=== PATIENT | female | born 1970 | race Caucasian/White ===

== ENCOUNTER 2016-06-23 18:58 | Emergency (ER) | payer MEDICAID ==
[~2016-06-23] VITALS: Ht 152.4 cm; Wt 75.5 kg
[2016-06-23 19:23] VITALS: Ht 152.4 cm; Wt 75.5 kg
--- NOTE | 2016-06-24 02:03 | ERA ---
ER Documentation Chief Complaint Date/Time DATE: 06/24/16 TIME: 02:02 Chief Complaint referred by pmd for low hgb 6.9 HPI The patient is a 45-year-old female, presenting to the ER because of abnormal hemoglobin 6.9, drawn yesterday. She was referred to the ER by her physician. She complained of generalized fatigue for months, denies hematemesis or hematochezia. She denies fever, chills, neck pain, chest pain, abdominal pain, vomiting, dysuria, diarrhea, constipation She does not smoke nor drink. She does not have excessive vaginal bleeding during her menstrual. Past medical history: None Past surgical history: 3 ROS All systems reviewed and are negative except as per history of present illness. Medications Home Meds Active Scripts Ferrous Sulfate* (Ferrous Sulfate*) 325 Mg Tabec, 325 MG PO TID for 30 Days, TAB Prov:SERGIO KURTZ MD 06/24/16 Allergies Allergies: Coded Allergies: No Known Drug Allergies (Verified Allergy, Unknown, 06/23/16) Physical Exam Vitals Vital Signs Date Time Temp Pulse Resp B/P Pulse Ox O2 Delivery O2 Flow Rate FiO2 06/23/16 19:23 99.2 100 20 135/83 99 Physical Exam Const: No acute distress. Head: Atraumatic. Eyes: Normal Conjunctiva. ENT: Normal External Ears, Nose and Mouth. Neck: Full range of motion. No meningismus. Resp: Clear to auscultation bilaterally. Cardio: Regular rate and rhythm, no murmurs. Abd: Soft, non distended, normal bowel sounds, non tender. Skin: No petechiae or rashes. Back: No midline or flank tenderness. Ext: No cyanosis, or edema. Neur: Awake and alert. No focal deficit Psych: Normal Mood and Affect. Result Diagram: 06/24/16 0205 06/24/16 0205 Results 24 hrs Laboratory Tests Test 06/24/16 02:05 White Blood Count 7.110^3/ul Red Blood Count 4.4410^6/ul Hemoglobin 7.4g/dl Hematocrit 28.1% Mean Corpuscular Volume 63.3fl Mean Corpuscular Hemoglobin 16.7pg Mean Corpuscular Hemoglobin Concent 26.3g/dl Red Cell Distribution Width 18.4% Platelet Count 36022^3/UL Mean Platelet Volume 8.7fl Neutrophils % 56.9% Lymphocytes % 34.8% Monocytes % 6.8% Eosinophils % 0.6% Basophils % 0.6% Nucleated Red Blood Cells % 0.0/100WBC Neutrophils # 4.010^3/ul Lymphocytes # 2.510^3/ul Monocytes # 0.510^3/ul Eosinophils # 0.010^3/ul Basophils # 0.010^3/ul Nucleated Red Blood Cells # 0.010^3/ul Prothrombin Time 12.8Sec Prothrombin Time Ratio 1.0 INR International Normalized Ratio 0.96 Activated Partial Thromboplast Time 25.7Sec Sodium Level 141mmol/L Potassium Level 3.5mmol/L Chloride Level 101mmol/L Carbon Dioxide Level 26mmol/L Anion Gap 18 Blood Urea Nitrogen 10mg/dl Creatinine 0.53mg/dl Glucose Level 105mg/dl Calcium Level 9.3mg/dl Total Bilirubin 0.3mg/dl Direct Bilirubin 0.00mg/dl Indirect Bilirubin 0.3mg/dl Aspartate Amino Transf (AST/SGOT) 26IU/L Alanine Aminotransferase (ALT/SGPT) 29IU/L Alkaline Phosphatase 83IU/L Total Protein 8.2g/dl Albumin 4.6g/dl Globulin 3.60g/dl Albumin/Globulin Ratio 1.27 Serum HCG, Qualitative NEGATIVE Procedures/MDM MEDICAL MAKING DECISION: The patient is a 45-year-old female, presenting with anemia, most likely due to iron deficient anemia. She is stable for outpatient follow-up. The differential diagnoses considered include but are not limited to gastritis, peptic ulcer disease, esophageal varices, Samantha-Valle tear, carcinoma, polyp, hemorrhoid, fissure, diverticulosis, angiodysplasia. Departure Diagnosis: Primary Impression: Anemia Condition: Good Comments She was discharged with ferrous sulfate I discussed the findings with the patient. I advised the patient to follow-up with the primary physician in about 1-2 days, sooner if needed and return if any concern. The patient's blood pressure was elevated (>120/80) but appears stable without evidence of hypertension emergency or urgency. The patient was counseled about the risks of hypertension and urged to pursue outpatient monitoring and therapy within a week with their primary care physician. SERGIO KURTZ MD Jun 24, 2016 02:03
[2016-06-24 02:32] LABS: ADD SCAN DIFF NO
[2016-06-24 02:34] LABS: ABNORMAL IP MESSAGE 1; BASOPHILS % 0.6 % (0.0-2.0); EOSINOPHILS % 0.6 % (0.0-7.0); HEMATOCRIT 28.1 % (37.0-47.0); HEMOGLOBIN 7.4 g/dl (12.0-16.0); LYMPHOCYTES # 2.5 10^3/ul (0.8-2.9); LYMPHOCYTES % 34.8 % (15.0-51.0); MEAN CORPUSCULAR HEMOGLOBIN 16.7 pg (29.0-33.0); MEAN CORPUSCULAR HGB CONC 26.3 g/dl (32.0-37.0); MEAN CORPUSCULAR VOLUME 63.3 fl (82.0-101.0); MEAN PLATELET VOLUME 8.7 fl (7.4-10.4); MONOCYTE # 0.5 10^3/ul (0.3-0.9); MONOCYTES % 6.8 % (0.0-11.0); NEUTROPHILS % 56.9 % (39.0-77.0); PLATELET COUNT 442 10^3/UL (140-415); RED BLOOD COUNT 4.44 10^6/ul (4.20-5.40); RED CELL DISTRIBUTION WIDTH 18.4 % (11.5-14.5); WHITE BLOOD COUNT 7.1 10^3/ul (4.8-10.8)
[2016-06-24 02:48] LABS: INR 0.96; PROTIME 12.8 Sec (12.2-14.2)
[2016-06-24 02:49] LABS: ALBUMIN 4.6 g/dl (3.3-4.9); PARTIAL THROMBOPLASTIN TIME 25.7 Sec (25.0-35.0)
[2016-06-24 02:50] LABS: POTASSIUM 3.5 mmol/L (3.5-5.1)
[2016-06-24 02:52] LABS: BILIRUBIN,INDIRECT 0.3 mg/dl (0-1.1); BILIRUBIN,TOTAL 0.3 mg/dl (0.2-1.3); CREATININE 0.53 mg/dl (0.44-1.00)
[2016-06-24 02:53] LABS: ALBUMIN/GLOBULIN RATIO 1.27; CALCIUM 9.3 mg/dl (8.4-10.2); TOTAL PROTEIN 8.2 g/dl (6.1-8.1)
[2016-06-24] MEDS ORDERED: FER325 PO (04:16)
[2016-06-24 04:30] VITALS: BP 129/79; PULSE 88; RESP 16; TEMP 98.1
== END 2016-06-24 04:31 | disposition home or self-care (01) ==
LOC: E/R 18:58
DX: D64.9 Anemia, unspecified (principal)
CPT/HCPCS: 36415; 80053; 84703; 85025; 85610; 85730; 86850; 86900; 86901; Z7502; 99283